=== PATIENT | female | born 1995 | race Caucasian/White ===

== ENCOUNTER 2024-03-21 21:34 | Emergency (ER) | payer MEDICAID ==
[~2024-03-21] VITALS: Ht 167.6 cm; Wt 64.0 kg
[2024-03-21 21:46] VITALS: BP 119/76; O2SAT 98
[2024-03-21 21:48] VITALS: PULSE 109; RESP 18
[2024-03-22 02:15] VITALS: TEMP 98
[2024-03-22] MEDS: ACETAMINOPHEN 500MG TABLET PO ONE (02:15)
== END 2024-03-22 02:15 | disposition home or self-care (01) ==
LOC: ER 21:34
DX: S09.90XA Unspecified injury of head, initial encounter (principal); M25.531 Pain in right wrist; Y08.89XA Assault by other specified means, initial encounter; Y93.89 Activity, other specified; Y92.89 Other specified places as the place of occurrence of the external cause; Y99.8 Other external cause status
CPT/HCPCS: 73110; 73120; 99284